=== PATIENT | male | born 1975 | race Caucasian/White ===

== ENCOUNTER 2019-10-10 19:20 | Emergency (ER) | payer SELFPAY ==
[~2019-10-10] VITALS: Ht 172.7 cm; Wt 99.8 kg
--- NOTE | 2019-10-10 19:58 | NUR ---
EZEQUIEL paged on patients behalf.
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
[2019-10-10 20:24] VITALS: BP 127/76
--- NOTE | 2019-10-10 20:25 | NUR ---
PER INTERNAL CHART NOTE: "[facility] CALLED". PT NOTIFIED.
[2019-10-10] MEDS ORDERED: ACETAMINOPHEN 500 MG TABLET ONE (20:52)
--- NOTE | 2019-10-10 20:57 | NUR ---
[facility] AT BS. TYLENOL GIVEN PER EMAR
[2019-10-10] MEDS ORDERED: ACETAMINOPHEN 500 MG TABLET PO ONE (21:00)
--- NOTE | 2019-10-10 21:30 | NUR ---
PT NOT IN ROOM.
== END 2019-10-10 22:10 ==
LOC: ED 22:04
DX: F41.9 Anxiety disorder, unspecified (principal); Y04.8XXA Assault by other bodily force, initial encounter; Y93.89 Activity, other specified; Y92.009 Unspecified place in unspecified non-institutional (private) residence as the place of occurrence of the external cause; Y99.8 Other external cause status
CPT/HCPCS: 93005; 99283